=== PATIENT | female | born 1990 | race Caucasian/White ===

== ENCOUNTER → 2024-08-31 12:59 | Outpatient (REF) | payer OTHER, SELFPAY | LOC: HWRAD 12:59 | PROVIDERS: ATTENDING PHYSICIAN Family Medicine | DX: R10.30 Lower abdominal pain, unspecified (principal); R10.9 Unspecified abdominal pain | CPT/HCPCS: 74176 ==

== ENCOUNTER 2024-09-16 16:07 | Emergency (ER) | payer OTHER, SELFPAY ==
[2024-09-16 16:11] VITALS: BP 126/68
[2024-09-16] MEDS: TORADOL 15 MG IM (19:16)
--- NOTE | 2024-09-17 23:57 | ED.GENMED ---
History of Present Illness
General
Chief Complaint: Musculo-Skeletal Complaint
Source: patient and records
Exam Limitations: none
Time Seen by Provider: 09/16/24 17:51
Nursing documentation reviewed up to this point in time: agreed with
History of Present Illness
History of Present Illness:
This is a 34 y/o female who presents to the emergency department today with concerns of left shoulder pain following a fall. Patient reports that one week ago, she was walking outside with her when she started slipping on the ice. She
reports that she fell onto her left side and her grabbed her arm quickly and pulled it outwards to try to prevent her fall. She states that she had some pain at the time of the injury but states that over the past few days, the pain has
gotten worse and she has significant pain with ROM of her shoulder. She denies any numbness or tingling or loss of sensation in her shoulder. She has a pmh of PE and is no longer on a blood thinner--she denies chest pain, shortness of breath,
palpitations. She did not hit her head or loose consciousness when she fell. She denies injury to her neck.
Past History
Past History
ED Past Medical History: None
ED Past Surgical History: None
Social History
Tobacco: Non-smoker
Alcohol: None
Drug: None
Personal:
Living: with family
Employment: Employed
Family History
Family History: Other
Review of Systems
Review of Systems
All Other Systems: ROS reviewed and negative except as documented in HPI and ROS
Phy Exam
Physical Exam
Physical Exam:
General: Patient is well appearing and in no acute distress; non-toxic
Skin: Warm and dry, no rashes or lesions
Head: Normocephalic, atraumatic
Eyes: Sclera non-icteric. EOMs intact.
Cardiac: Regular rate
Peripheral Vascular: 2+ radial and ulnar pulses on the left. Brisk capillary refill.
Pulm: Normal respiratory effort
Musculoskeletal: Pain and limited abduction of left shoulder, normal internal and external rotation. No palpable bony deformities.
Neuro: CN II-XII intact, no focal neurologic deficits. Sensation intact.
Psychiatric: Appropriate mood and affect.
Course
Orders/Labs/Results
Orders:
Orders
09/16/24 16:13
Shoulder, Left, Trauma CR [CR Shoulder, Trauma - Left] Urgent
Comment:
Reason For Exam: pain
09/16/24 18:10
Ketorolac [Toradol] 15 mg IV NOW STA
09/16/24 19:13
Ketorolac [Toradol] 15 mg .ROUTE .STK-MED ONE
09/16/24 19:15
Ketorolac [Toradol] 15 mg IM NOW STA
Vital Signs
Initial and Last Documented VS:
Initial Vital Signs
Temp Pulse Resp BP Pulse Ox
98.1 F 77 16 126/68 100
09/16/24 16:11 09/16/24 16:11 09/16/24 16:11 09/16/24 16:11 09/16/24 16:11
Last Documented Vital Signs
Temp Pulse Resp BP Pulse Ox
98.1 F 77 16 126/68 100
09/16/24 16:11 09/16/24 16:11 09/16/24 16:11 09/16/24 16:11 09/16/24 16:11
MDM/Problems Addressed
Differential Diagnosis Includes:
ddx include rotator cough tendinitis, osteoarthritis, contusion, impingement syndrome, musculoskeletal sprain
MDM/Problems Addressed:
34 y/o female presents to the emergency department today with concerns of left shoulder pain following a fall a week ago. On exam she is neurovascularly intact and x-ray shows no acute disease. Suspect contusion from fall. Discussed conservative
management and orthopedic follow up. Patient stable for discharge.
Chronic conditions affecting care:
n/a
*Pulse Oximetry
Patient hypoxic: no
*Critical Care Note
Total Time (30-74mins, 75-104mins- exclusive of procedures): Not Applicable
Data Reviewed
Review of Other/Old Records Reveals: Records (reviewed ER documentation from 01/30/23)
Patient Management
Escalation/DeEscalation of care consider admission/obs:
reviewed case with my attending
admit not indicated
ED Attending Note
-
Portions of this chart may have been created with voice recognition software.� Occasional wrong word or��sound alike� substitutions may have occurred due to the inherent limitations of voice recognition software.
Discharge Plan
Departure
Patient Disposition: Home (Routine Discharge)
Date of Disposition: 09/16/24
Time of Disposition: 18:56
Patient with high blood pressure during this ER visit?: Yes
Condition: Good
Discharge Problem:
Acute shoulder pain
Instructions: Shoulder Sprain, BLOOD PRESSURE
Prescriptions:
New
lidocaine 5 % adhesive patch,medicated
1 patch topical DAILY Qty: 15 0RF
No Action
vit-iron fum-folic ac 1 EACH tablet
1 ea PO DAILY
enoxaparin 60 MG/0.6 ML syringe
60 mg SQ BID Qty: 60 0RF
Referrals:
Kody Medina MD [Active] - Call in 1-3 days for appt
Activity Restrictions/Additional Instructions:
Lidocaine patches have been sent to your pharmacy. You can apply 1 patch over the affected area once daily. Please remove after 12 hours. You can continue to take ibuprofen.
Your shoulder x-ray was negative for any fracture or dislocation. Should you have persistent symptoms, please call the attached number to schedule appointment to see orthopedist.
PLEASE RETURN EMERGENCY DEPARTMENT SHOULD YOU DEVELOP CHEST PAIN, SHORTNESS OF BREATH, LIGHTHEADEDNESS OR DIZZINESS, OR ANY OTHER SIGNS OR SYMPTOMS CONCERNING TO YOU.
Interventions
Interventions:
*Risk Screen - Suicide Last Done: 09/16/24 16:11
*Neglect/Abuse Screening Last Done: 09/16/24 16:11
ED- Fall Risk Assessment Last Done: 09/16/24 19:22
*Nursing Disposition Last Done: 09/16/24 19:22
ED-Musculoskeletal Assessment Last Done: 09/16/24 19:20
Discharge Date and Time
Discharge Date/Time: 09/16/24 19:22
Print Language: FRISIAN
== END 2024-09-16 19:22 | disposition home or self-care (01) ==
LOC: EMR 16:07
PROVIDERS: EMERGENCY PHYSICIAN Emergency Medicine; FAMILY PHYSICIAN Family Medicine
DX: M25.512 Pain in left shoulder (principal); W00.0XXA Fall on same level due to ice and snow, initial encounter
CPT/HCPCS: 96372; 99284; 73030